=== PATIENT | male | born 1980 | race Caucasian/White ===

== ENCOUNTER 2016-10-22 21:02 | Inpatient (IN) | payer SELFPAY ==
[~2016-10-22] VITALS: Ht 182.9 cm; Wt 103.2 kg
[~2016-10-22 21:02] MED LIST: DILAUDID2 MG PO; MOTRIN800 MG PO; NOHOMEMEDS; NORCO 5/3251 TABLET PO; ZOFRAN ODT4 MG PO; ZOFRAN4 MG PO
[2016-10-22 21:57] LABS: HEMATOCRIT 41.5 % (38.0-50.0); MCH 28.4 PG (29.0-34.0); MCHC 34.2 G/DL (30.0-36.0); MEAN PLAT.VOLUME 9.7 uM^3 (9.0-12.4); PLATELET COUNT 360 K/uL (156-360); RBC DIS.WIDTH-CV 13.5 % (11.8-14.6); RBC DIS.WIDTH-SD 39.8 % (39-53); WHITE BLOOD COUNT 16.2 K/uL (4.1-10.2)
[2016-10-22 22:06] LABS: CHLORIDE 107 mEq/L (99-109); POTASSIUM 3.9 mEq/L (3.7-5.4); SODIUM 138 mEq/L (136-147)
[2016-10-22 22:07] LABS: GLUCOSE 100 mg/dL (70-99)
[2016-10-22 22:09] LABS: ANION GAP 12 MEQ/L (2-14)
[2016-10-22 22:11] LABS: GFR ESTIMATE (CALCULATED) > 59 mL/min/
[2016-10-22 22:12] LABS: UREA NITROGEN (BUN) 16 mg/dL (9-23)
[2016-10-23 04:54] VITALS: BP 115/64
[2016-10-23 07:29] VITALS: BP 127/60
[2016-10-23 11:47] VITALS: BP 110/57
[2016-10-23 19:31] VITALS: BP 126/75
[2016-10-24 00:01] VITALS: BP 131/67
[2016-10-24 04:39] VITALS: BP 124/74
[2016-10-24 07:25] VITALS: BP 121/72
[2016-10-24 23:58] VITALS: BP 130/79
[2016-10-25 08:11] VITALS: BP 117/79
[2016-10-25 16:30] VITALS: BP 121/73
[2016-10-25 23:23] VITALS: BP 114/74
[2016-10-26 06:39] LABS: C-REACTIVE PROTEIN 30.8 MG/L (0-10)
[2016-10-26 06:56] LABS: VANCOMYCIN, TROUGH 6.4 MCG/ML (10-20)
[2016-10-26 08:03] VITALS: BP 109/70
[2016-10-26 08:08] VITALS: BP 132/78
[2016-10-26] MEDS ORDERED: LOVENOX40 MG/0.4 SC (08:48)
[2016-10-26] MEDS ORDERED: ENDOCET 5-3251 EACH PO (08:48)
[2016-10-26] MEDS ORDERED: ECOTRIN325 MG PO (09:30)
== END 2016-10-26 15:45 | disposition home or self-care (01) | DRG 496 ==
LOC: EME 21:02 → EDOF 23:40 → 3EAST 23:40 → EDOF 23:55 → 3EAST 10-23 01:45
PROVIDERS: Emergency Medicine; Orthopaedic Surgery
DX: T84.613A Infection and inflammatory reaction due to internal fixation device of left radius, initial encounter (principal); F17.200 Nicotine dependence, unspecified, uncomplicated; L02.91 Cutaneous abscess, unspecified; M86.18 Other acute osteomyelitis, other site; B95.5 Unspecified streptococcus as the cause of diseases classified elsewhere; M86.9 Osteomyelitis, unspecified
CPT/HCPCS: 73090; 73110; 73201; 76000; 76937; 80048; 80202; 83605; 85027; 85651; 86140; 86850; 86900; 86901; 87040; 87070; 87075; 87076; 87077; 87185; 87205; 99281; 99285; J0696; J1170; J1650; J1885; J2175; J2250; J2270; J2543; J3010; J3370; J7030; J7050

== ENCOUNTER 2017-08-07 19:25 | Emergency (ER) | payer OTHER ==
[~2017-08-07] VITALS: Ht 180.3 cm; Wt 105.8 kg
[~2017-08-07 19:25] MED LIST changes: +ECOTRIN325 MG PO; +ENDOCET 5-3251 EACH PO; +LOVENOX40 MG/0.4 SC
[2017-08-07 19:52] LABS: HEMATOCRIT 42.5 % (38.0-50.0); MCH 27.3 PG (29.0-34.0); MCHC 33.2 G/DL (30.0-36.0); MCV 82.2 FL (86-99); MEAN PLAT.VOLUME 9.5 uM^3 (9.0-12.4); PLATELET COUNT 309 K/uL (156-360); RBC DIS.WIDTH-CV 12.7 % (11.8-14.6); RBC DIS.WIDTH-SD 38.3 % (39-53); RED BLOOD COUNT 5.17 M/uL (4.00-5.50); WHITE BLOOD COUNT 10.1 K/uL (4.1-10.2)
[2017-08-07 20:04] LABS: CHLORIDE 109 mEq/L (99-109); POTASSIUM 3.9 mEq/L (3.7-5.4); SODIUM 140 mEq/L (136-147)
[2017-08-07 20:06] LABS: GLUCOSE 85 mg/dL (70-99)
[2017-08-07 20:08] LABS: ANION GAP 8 MEQ/L (2-14); TOTAL BILIRUBIN 0.3 mg/dL (0.0-1.0)
[2017-08-07 20:10] LABS: ALKALINE PHOSPHATASE 56 IU/L (3-129); GFR ESTIMATE (CALCULATED) > 59 mL/min/
[2017-08-07 20:11] LABS: UREA NITROGEN (BUN) 12 mg/dL (9-23)
[2017-08-07] MEDS ORDERED: CLEOCIN300 MG PO (20:47)
[2017-08-07 21:14] VITALS: BP 142/69
== END 2017-08-07 21:15 | disposition home or self-care (01) ==
LOC: EME 19:25
DX: Z48.89 Encounter for other specified surgical aftercare (principal); L98.8 Other specified disorders of the skin and subcutaneous tissue; Z98.890 Other specified postprocedural states; Z86.14 Personal history of Methicillin resistant Staphylococcus aureus infection; F17.200 Nicotine dependence, unspecified, uncomplicated
CPT/HCPCS: 80053; 85027; 99281; 99284